=== PATIENT | female | born 1980 | race American Indian/Alaskan Native ===

== ENCOUNTER 2019-04-12 19:54 | Emergency (ER) | payer OTHER ==
--- NOTE | 2019-04-12 20:42 | Emergency Department Report ---
Blank Doc - Documentation Documentation: 6 WEEKS WITH ABDOMINAL PAIN AND BLEEDING. PLAN LABS AND US
[2019-04-12 21:31] LABS: Bilirubin,Urine NEG (Negative); Blood,Urine NEG (Negative); Color,Urine Colorless (Yellow); Protein,Urine <15 mg/dL mg/dL (Negative); RBC,Urine < 1.0 /HPF (0.0-6.0); Urobilinogen,Urine < 2.0 mg/dL (<2.0); WBC,Urine < 1.0 /HPF (0.0-6.0)
[2019-04-12 21:33] LABS: Basophils % (Auto) 0.7 % (0.0-1.8); Eosinophils # (Auto) 0.2 K/mm3 (0.0-0.4); Eosinophils % (Auto) 2.8 % (0.0-4.3); Hematocrit 33.3 % (30.3-42.9); Lymphocytes # (Auto) 2.5 K/mm3 (1.2-5.4); Lymphocytes % (Auto) 42.7 % (13.4-35.0); Mean Corpuscular HGB Conc 33 % (30-34); Monocytes # (Auto) 0.6 K/mm3 (0.0-0.8); Monocytes % (Auto) 10.1 % (0.0-7.3); Platelet Count 265 K/mm3 (140-440); Red Cell Distribution Width 19.2 % (13.2-15.2)
[2019-04-12 21:40] LABS: Mean Corpuscular Volume 65 fl (79-97)
[2019-04-12 21:43] LABS: INR 1.02 (0.87-1.13)
[2019-04-12 21:57] LABS: BUN/Creatinine Ratio 11; Blood Urea Nitrogen 8 mg/dL (7-17); Calcium 9.6 mg/dL (8.4-10.2); Hemolysis Index 2
[2019-04-13] MEDS ORDERED: TYLENOL PO ONE (00:04)
--- NOTE | 2019-04-13 00:09 | Emergency Department Report ---
ED HPI - General Chief complaint: Abdominal Pain Stated complaint: ABD CRAMPS/VAGINAL BLEEDING Time Seen by Provider: 04/12/19 20:41 Source: patient Mode of arrival: Ambulatory Limitations: No Limitations - History of Present Illness Initial comments: 38-year-old female presents to ED with lower abdominal and back cramping since earlier this evening. Patient states she is currently 6 weeks . Reports slight spotting associated with the pain. Patient is , with 1 spontaneous miscarriage. OB: [facility] Complaint: abdominal pain, vaginal bleeding (spotting) -: This evening Location: pelvis Radiation: back Severity: moderate Quality: cramping Consistency: intermittent Improves with: none Worsens with: none Associated symptoms: vaginal bleeding Vaginal bleeding: light :: Yes Number of weeks : 6 Pre- care: none (none so far, has appt w/ [facility] scheduled) - Related Data : 5 Para: 3 Allergies Allergy/AdvReac Type Severity Reaction Status Date / Time No Known Allergies Allergy Unverified 04/12/19 20:40 ED Review of Systems ROS: Stated complaint: ABD CRAMPS/VAGINAL BLEEDING Other details as noted in HPI Comment: All other systems reviewed and negative Gastrointestinal: abdominal pain Genitourinary: other (reports vaginal spotting) ED Past Medical Hx - Past Medical History Previous Medical History?: No - Surgical History Past Surgical History?: No - Social History Smoking Status: Never Smoker ED Physical Exam - General Limitations: No Limitations General appearance: alert, in no apparent distress - Head Head exam: Present: atraumatic, normocephalic - Eye Eye exam: Present: normal appearance - ENT ENT exam: Present: mucous membranes moist - Neck Neck exam: Present: normal inspection - Respiratory Respiratory exam: Present: normal lung sounds bilaterally. Absent: respiratory distress - Cardiovascular Cardiovascular Exam: Present: regular rate, normal rhythm - GI/Abdominal GI/Abdominal exam: Present: soft, tenderness (mild suprapubic). Absent: distended - Extremities Exam Extremities exam: Present: normal inspection - Neurological Exam Neurological exam: Present: alert, oriented X3 - Psychiatric Psychiatric exam: Present: normal affect, normal mood - Skin Skin exam: Present: warm, dry, intact, normal color. Absent: rash ED Course Vital Signs 04/12/19 04/12/19 04/13/19 19:58 20:42 01:35 Temperature 98.0 F 98.0 F Pulse Rate 62 62 Respiratory 18 18 12 Rate Blood Pressure 148/78 148/78 Blood Pressure [Left] O2 Sat by Pulse 100 100 Oximetry 04/13/19 02:59 Temperature 98.7 F Pulse Rate 66 Respiratory 12 Rate Blood Pressure Blood Pressure 118/74 [Left] O2 Sat by Pulse 100 Oximetry - Reevaluation(s) Reevaluation #1: 04/13/19 02:39 Spoke w/ [facility] multiple times. Unable to find pt's study. No report in [employer]. No report in PACS. [facility] has report in his [employer] system. I viewed report and it states single live IUP, HR 98. ED Medical Decision Making - Lab Data Result diagrams: 04/12/19 20:54 04/12/19 20:54 - Radiology Data Radiology results: report reviewed, image reviewed - Medical Decision Making - abdominal cramping, light spotting - US shows IUP at 6 wks, HR 98 - threatened miscarriage, pt advisd to f/u with OB - return precautions given - vitals stable - Differential Diagnosis ectpoic, IUP, miscarriage Critical care attestation.: If time is entered above; I have spent that time in minutes in the direct care of this critically ill patient, excluding procedure time. ED Disposition Clinical Impression: Threatened miscarriage in early , 6 weeks gestation of Disposition: DC-01 TO HOME OR SELFCARE Is pt being admited?: No Condition: Stable Instructions: Threatened Miscarriage (ED), Abdominal Pain (ED) Referrals: PRIMARY CARE, [Referring] - 3-5 Days Time of Disposition: 02:41
--- NOTE | 2019-04-13 02:42 | Ultrasound Report ---
PROCEDURE: US OB <= 14 WEEKS FETUS TECHNIQUE: Real-time transabdominal and transvaginal sonography of the uterus, placenta, amniotic fl uid, adnexa, and fetus was performed with image documentation. Measurements were obtained to determin e age/size. M-mode Doppler was used to document heartbeat. ADDITIONAL GESTATION: None. HISTORY: Vaginal bleeding COMPARISONS: None . FINDINGS: CRL: 3.7 mm, which corresponds to a gestational age of: 6 weeks, 0 days. Yolk Sac: Appropriate for gestational age. . Embryonic Cardiac Activity: 98 bpm . Gestational Sac: Size and shape are appropriate for gestational age Placenta: Normal Amniotic fluid: Appropriate for gestational age. Cervix: Normal. Right Ovary: Normal . Left Ovary: Normal . Estimated delivery date: 12/06/2019 . Uterus and adnexa: Normal. IMPRESSION: Single live intrauterine gestation at approximately 6 weeks 0 days . EDC by US 0 . This document is electronically signed by Pippa Fregoso DO., April 13 2019 12:10:00 AM ET
--- NOTE | 2019-04-13 02:42 | Ultrasound Report ---
PROCEDURE: US OB TRANSVAGINAL TECHNIQUE: Real-time transabdominal and transvaginal sonography of the uterus, placenta, amniotic fl uid, adnexa, and fetus was performed with image documentation. Measurements were obtained to determin e age/size. M-mode Doppler was used to document heartbeat. ADDITIONAL GESTATION: None. HISTORY: Vaginal bleeding COMPARISONS: None . FINDINGS: CRL: 3.7 mm, which corresponds to a gestational age of: 6 weeks, 0 days. Yolk Sac: Appropriate for gestational age. . Embryonic Cardiac Activity: 98 bpm . Gestational Sac: Size and shape are appropriate for gestational age Placenta: Normal Amniotic fluid: Appropriate for gestational age. Cervix: Normal. Right Ovary: Normal . Left Ovary: Normal . Estimated delivery date: 12/06/2019 . Uterus and adnexa: Normal. IMPRESSION: Single live intrauterine gestation at approximately 6 weeks 0 days . EDC by US 0 . This document is electronically signed by Pippa Fregoso DO., April 13 2019 12:10:34 AM ET
[2019-04-13 03:03] VITALS: BP 118/74
== END 2019-04-13 03:05 | disposition home or self-care (01) ==
LOC: ED 19:54
DX: O20.0 Threatened abortion (principal); Z3A.01 Less than 8 weeks gestation of pregnancy
CPT/HCPCS: 36415; 76801; 76817; 80048; 81001; 84702; 85025; 85610; 86900; 86901; 99284

== ENCOUNTER 2019-11-11 14:39 | Outpatient (CLI) | payer OTHER ==
[2019-11-11 15:45] LABS: Bilirubin,Urine NEG (Negative); Blood,Urine NEG (Negative); Color,Urine Yellow (Yellow); Mucus,Urine FEW /HPF; Protein,Urine <15 mg/dL mg/dL (Negative); Urobilinogen,Urine < 2.0 mg/dL (<2.0); WBC,Urine < 1.0 /HPF (0.0-6.0)
[2019-11-11 17:08] VITALS: BP 116/62
--- NOTE | 2019-11-11 21:19 | Ultrasound Report ---
Limited obstetrical ultrasound INDICATION: 36 week , labor Very limited evaluation was performed. Intrauterine is seen. heart rate of 135 bpm wa s documented. Technologist reported cephalic position. WESLEY is just within normal limits at 8.5 cm. Signer Name: Carmelo Elizabeth MD Signed: 11/11/2019 9:14 PM Workstation Name: [id number]
--- NOTE | 2019-11-11 21:50 | Ultrasound Report ---
Biophysical profile. 11/11/2019. HISTORY: Previous movement. FINDINGS: Biophysical profile is normal at 8/8. Signer Name: Joe Mayorga MD Signed: 11/11/2019 9:46 PM Workstation Name: [id number]
== END 2019-11-11 18:19 | disposition home or self-care (01) ==
LOC: TRG 14:39
PROVIDERS: ATTEND Obstetrics & Gynecology
DX: O47.1 False labor at or after 37 completed weeks of gestation (principal); Z3A.36 36 weeks gestation of pregnancy
CPT/HCPCS: 59025; 76815; 76819; 81001

== ENCOUNTER 2019-12-02 14:17 | Inpatient (IN) | payer OTHER ==
[2019-12-02] MEDS ORDERED: ePHEDrine SULFATE 50 MG/1 ML INJ IV PRN (15:44)
[2019-12-02] MEDS ORDERED: LIDOCAINE (2%) 20 MG/1 ML VIAL 20 ML MDV INFILTRATI ONE (15:44)
[2019-12-02] MEDS ORDERED: TERBUTALINE 1 MG/1 ML INJ IVP PRN (15:44)
[2019-12-02] MEDS ORDERED: BUTORPHANOL 2 MG/1 ML INJ IV PRN (15:44)
[2019-12-02] MEDS ORDERED: fentaNYL 100 MCG/2 ML INJ IV PRN (15:44)
[2019-12-02] MEDS ORDERED: TERBUTALINE 1 MG/1 ML INJ SUB-Q PRN (15:44)
[2019-12-02] MEDS ORDERED: MINERAL OIL 30 ML ORAL LIQD PO PRN (15:44)
[2019-12-02] MEDS ORDERED: OXYTOCIN DRIP 30 UNITS/500 ML BAG IV SCH (16:00)
[2019-12-02] MEDS ORDERED: OXYTOCIN 20 UNIT/1000ML DRIP 20 UNITS/1,000 ML BAG IV SCH (16:00)
[2019-12-02] MEDS ORDERED: miSOPROStol 25 MCG TAB PO SCH (16:00)
[2019-12-02] MEDS ORDERED: LACTATED RINGERS 1,000 ML IV SCH (16:00)
--- NOTE | 2019-12-02 16:08 | History and Physical Report ---
History of Present Illness Date of examination: 12/02/19 Date of admission: 12/02/19 14:17 Chief complaint: IOL secondary to NRFHTs at [facility] office History of present illness: 39 yo, @ 39wks gestation, initiated care with [facility] at 8 wks gestation. Her has been complicated by AMA, Beta Thalassemia minor, Vit D deficiency, increased carrier risk for SMA and polyhydramnios (resolved by August). Her care has been co-managed by [facility] specialist. She reports to [facility] from [facility] office today for IOL secondary to non-reactive NST, per [facility] recommendations. She reports some FM, but not as much as usual in the past week. Denies any VB or LOF. Labs: B+, antibody negative; Rubella immune; VDLR non-reactive; urine culture negative; HBsAg negative; HIV negative; platelets 310K; GC/Chlamydia/Trich negative; Vit D 22.6; HSVII negative; Hgb 10.4, Hct 32.9%; 1 hr gtt - 114; GBS negative. Past History Past Medical History: no pertinent history Past Surgical History: no surgical history [employer] History: other (HRHPV with negative PAP) Family/Genetic History: hypertension (father) Social history: , lives with family, full code. denies: smoking, alcohol abuse, prescription drug abuse, IV drug use - Obstetrical History Expected Date of Delivery: 12/09/19 Actual Gestation: 39 Week(s) 0 Day(s) : 5 Para: 3 Hx # Term Pregnancies: 3 Number of Pregnancies: 0 Spontaneous Abortions: 1 Induced : 0 Number of Living Children: 3 #1 Gender: Female year: Birthweight: 2.948 kg Method of Delivery: Vaginal Gestational age at delivery: 40 Complications: none #2 Gender: Female year: 2,[birth year] Birthweight: 3.033 kg Method of Delivery: Vaginal Gestational age at delivery: 41 Complications: none #3 Gender: Male year: 2,010 Birthweight: 2.977 kg Method of Delivery: Vaginal Gestational age at delivery: 40 Complications: none Medications and Allergies Allergies Allergy/AdvReac Type Severity Reaction Status Date / Time No Known Allergies Allergy Verified 11/11/19 14:44 Active Meds: Active Medications Butorphanol Tartrate (Stadol) 2 mg IV Q2H PRN PRN Reason: Pain , Severe (7-10) Ephedrine Sulfate (Ephedrine Sulfate) 10 mg IV Q2M PRN PRN Reason: Hypotension Fentanyl (Sublimaze) 100 mcg IV Q2H PRN PRN Reason: Labor Pain Oxytocin/Sodium Chloride (Pitocin/Ns 20 Unit/1000ml Drip) 20 units in 1,000 mls @ 125 mls/hr IV DIRECT CAT Oxytocin/Sodium Chloride (Pitocin/Ns 30 Unit/500ml) 30 units in 500 mls @ 1 mls/hr IV TITR CAT; Protocol Lactated Ringer's (Lactated Ringers) 1,000 mls @ 125 mls/hr IV DIRECT CAT Mineral Oil (Mineral Oil) 30 ml PO QHS PRN PRN Reason: Constipation Misoprostol (Cytotec) 50 mcg PO Q4H CAT Terbutaline Sulfate (Brethine) 0.25 mg SUB-Q ONCE PRN PRN Reason: Hyperstimulation/Hypertonicity Terbutaline Sulfate (Brethine) 0.25 mg IVP ONCE PRN PRN Reason: Hyperstimulation/Hypertonicity Review of Systems All systems: negative - Vital Signs Vital signs: Vital Signs Temp Pulse Resp BP Pulse Ox 98.1 F 76 16 125/80 99 12/02/19 14:45 12/02/19 14:45 12/02/19 14:45 12/02/19 14:45 12/02/19 14:45 Temp Pulse Resp BP Pulse Ox 98.1 F 82 16 125/80 98 12/02/19 14:45 12/02/19 15:32 12/02/19 14:45 12/02/19 14:45 12/02/19 15:32 - Physical Exam Breasts: Positive: normal Cardiovascular: Regular rate Lungs: Positive: Normal air movement Abdomen: Positive: other (gravid) Genitourinary (Female): Positive: normal external genitalia Vagina: Positive: normal moisture Uterus: Positive: enlarged (S=D) Extremities: Positive: normal Deep Tendon Reflex Grade: Normal +2 - Obstetrical FHR: category 2 (minimal varibility) Uterine Contraction Monitor Mode: External Cervical Dilatation: 1 Cervical Effacement Percentage: 50 station: -3 Uterine Contraction Pattern: Absent Uterine Tone Measurement Phase: Resting Results All other labs normal. Assessment and Plan - Patient Problems (1) Encounter for induction of labor Current Visit: Yes Status: Acute Plan to address problem: Admit to [facility] L & D Induction of labor Initiate cyctotec 50mcg po q 4 hrs Anticipate (2) Advanced maternal age (AMA) in Current Visit: Yes Status: Acute (3) Beta thalassemia minor Current Visit: Yes Status: Acute
[2019-12-02 16:55] LABS: Hematocrit 36.4 % (30.3-42.9); Hemoglobin 11.9 gm/dl (10.1-14.3); Mean Corpuscular HGB Conc 33 % (30-34); Mean Corpuscular Volume 74 fl (79-97); Platelet Count 209 K/mm3 (140-440); Red Blood Count 4.94 M/mm3 (3.65-5.03); Red Cell Distribution Width 14.9 % (13.2-15.2)
--- NOTE | 2019-12-02 18:03 | Progress Note ---
Assessment and Plan - Patient Problems (1) Encounter for induction of labor Current Visit: Yes Status: Acute Plan to address problem: Admit to [facility] L & D Induction of labor Discontinue cytotec Alvarado bulb placed (80cc uterine; 80 cc vaginal) without difficulty, pt tolerated well Anticipate (2) Advanced maternal age (AMA) in Current Visit: Yes Status: Acute (3) Beta thalassemia minor Current Visit: Yes Status: Acute Subjective - Subjective Date of service: 12/02/19 Principal diagnosis: IOL Interval history: 39 yo, @ 39wks gestation, initiated care with [facility] at 8 wks gestation. Her has been complicated by AMA, Beta Thalassemia minor, Vit D deficiency, increased carrier risk for SMA and polyhydramnios (resolved by August). Her care has been co-managed by [facility] specialist. She reports to [facility] from [facility] office today for IOL secondary to non-reactive NST, per [facility] recommendations. She reports some FM, but not as much as usual in the past lang collins Denies any VB or LOF. Labs: B+, antibody negative; Rubella immune; VDLR non-reactive; urine culture negative; HBsAg negative; HIV negative; platelets 310K; GC/Chlamydia/Trich negative; Vit D 22.6; HSVII negative; Hgb 10.4, Hct 32.9%; 1 hr gtt - 114; GBS negative. Patient reports: movement normal, other (Discussed minimal variablity of FHTs with pt, and recommended cervical exam. If cervix is open at least 1 cm, can attempt to place a alvarado bulb for cervical ripening instead of cyctotec. Pt verbalized understanding and agrees with POC.), no loss of fluid, no vaginal bleeding, no contractions Objective - Vital Signs Vital Signs: Vital Signs - 12hr 12/02/19 12/02/19 12/02/19 14:45 14:57 15:02 Temperature 98.1 F Pulse Rate 76 78 81 Respiratory 16 Rate Blood Pressure Blood Pressure 125/80 [Right] O2 Sat by Pulse 99 98 98 Oximetry 12/02/19 12/02/19 12/02/19 15:07 15:12 15:17 Temperature Pulse Rate 86 89 90 Respiratory Rate Blood Pressure Blood Pressure [Right] O2 Sat by Pulse 98 98 98 Oximetry 12/02/19 12/02/19 12/02/19 15:22 15:23 15:27 Temperature Pulse Rate 83 86 Respiratory Rate Blood Pressure Blood Pressure [Right] O2 Sat by Pulse 98 86 98 Oximetry 12/02/19 12/02/19 12/02/19 15:32 16:40 16:45 Temperature Pulse Rate 82 90 99 H Respiratory Rate Blood Pressure Blood Pressure [Right] O2 Sat by Pulse 98 97 98 Oximetry 12/02/19 12/02/19 12/02/19 16:50 16:55 17:00 Temperature Pulse Rate 94 H 100 H 99 H Respiratory Rate Blood Pressure Blood Pressure [Right] O2 Sat by Pulse 98 99 98 Oximetry 12/02/19 12/02/19 12/02/19 17:05 17:10 17:15 Temperature Pulse Rate 94 H 108 H 104 H Respiratory Rate Blood Pressure 130/82 Blood Pressure [Right] O2 Sat by Pulse 98 98 98 Oximetry 12/02/19 12/02/19 12/02/19 17:20 17:25 17:30 Temperature Pulse Rate 108 H 95 H 101 H Respiratory Rate Blood Pressure Blood Pressure [Right] O2 Sat by Pulse 98 98 98 Oximetry 12/02/19 12/02/19 12/02/19 17:35 17:40 17:45 Temperature Pulse Rate 100 H 90 96 H Respiratory Rate Blood Pressure Blood Pressure [Right] O2 Sat by Pulse 98 98 99 Oximetry 12/02/19 12/02/19 17:50 17:55 Temperature Pulse Rate 87 83 Respiratory Rate Blood Pressure Blood Pressure [Right] O2 Sat by Pulse 97 98 Oximetry - Exam Breasts: deferred Cardiovascular: Regular rate Lungs: Normal air movement Uterus: Present: other (S=D) FHR: category 2 (minimal varibility) Uterine Contraction Monitor Mode: External Cervical Dilatation: 1 Cervical Effacement Percentage: 50 station: -3 Uterine Contraction Pattern: Absent Uterine Tone Measurement Phase: Resting Extremities: normal - Labs Labs: Abnormal Labs 12/02/19 16:29 MCV 74 L MCH 24 L Laboratory Results - last 24 hr 12/02/19 12/02/19 16:29 16:29 WBC 8.7 RBC 4.94 Hgb 11.9 Hct 36.4 MCV 74 L MCH 24 L MCHC 33 RDW 14.9 Plt Count 209 Blood Type B POSITIVE Antibody Screen Negative
--- NOTE | 2019-12-02 20:47 | Ultrasound Report ---
Obstetrical ultrasound third trimester limited INDICATION: Pelvic and abdominal pain FINDINGS: The WESLEY is decreased at 6 cm. The fetus in the cephalic position. heart rate measures 141 bpm. IMPRESSION: Decreased WESLEY of 6 cm, as above. ULTRASOUND BIOPHYSICAL PROFILE INDICATION / CLINICAL INFORMATION: wellbeing. COMPARISON: None available. FINDINGS: BREATHING MOVEMENT = 2 GROSS BODY MOVEMENT = 2 TONE = 2 QUALITATIVE AMNIOTIC FLUID VOLUME = 2 TOTAL BIOPHYSICAL SCORE = 05/29 AMNIOTIC FLUID INDEX (cm) = PRESENTATION: Cephalic. HEART RATE (beats per minute): IMPRESSION: 1. biophysical profile = 05/29 Signer Name: Andrez Nuno MD Signed: 12/02/2019 8:42 PM Workstation Name: [email or web address]
--- NOTE | 2019-12-03 10:06 | Progress Note ---
Assessment and Plan A: IUP @ 39 6/7 Weeks Category II Tracing Active Labor GBS Negative P: AROM Internals X 2 Start Pitocin Augmentation Subjective - Subjective Date of service: 12/03/19 Principal diagnosis: IOL Patient reports: movement normal, no loss of fluid, no vaginal bleeding, no contractions Objective - Vital Signs Vital Signs: Vital Signs - 12hr 12/02/19 12/02/19 12/02/19 22:03 22:08 22:11 Temperature Pulse Rate 91 H 111 H 84 Blood Pressure 125/75 O2 Sat by Pulse 97 97 Oximetry 12/02/19 12/02/19 12/02/19 22:13 22:18 22:23 Temperature Pulse Rate 98 H 104 H 103 H Blood Pressure O2 Sat by Pulse 98 97 97 Oximetry 12/02/19 12/02/19 12/02/19 22:28 22:33 22:48 Temperature Pulse Rate 98 H 97 H 88 Blood Pressure O2 Sat by Pulse 97 99 98 Oximetry 12/02/19 12/02/19 12/02/19 22:53 22:58 23:03 Temperature Pulse Rate 99 H 104 H 108 H Blood Pressure O2 Sat by Pulse 98 98 98 Oximetry 12/02/19 12/02/19 12/02/19 23:08 23:10 23:13 Temperature Pulse Rate 94 H 87 99 H Blood Pressure 128/76 O2 Sat by Pulse 98 94 97 Oximetry 12/02/19 12/02/19 12/02/19 23:18 23:23 23:28 Temperature Pulse Rate 98 H 99 H 93 H Blood Pressure O2 Sat by Pulse 97 96 98 Oximetry 12/02/19 12/02/19 12/02/19 23:33 23:38 23:43 Temperature Pulse Rate 106 H 94 H 95 H Blood Pressure O2 Sat by Pulse 97 98 97 Oximetry 12/02/19 12/02/19 12/02/19 23:48 23:53 23:58 Temperature Pulse Rate 105 H 96 H 99 H Blood Pressure O2 Sat by Pulse 97 98 98 Oximetry 12/03/19 12/03/19 12/03/19 00:03 00:08 00:10 Temperature Pulse Rate 97 H 99 H 87 Blood Pressure 134/79 O2 Sat by Pulse 98 97 94 Oximetry 12/03/19 12/03/19 12/03/19 00:13 00:18 00:23 Temperature Pulse Rate 96 H 98 H 93 H Blood Pressure O2 Sat by Pulse 97 96 97 Oximetry 12/03/19 12/03/19 12/03/19 00:28 00:33 00:38 Temperature Pulse Rate 102 H 92 H 88 Blood Pressure O2 Sat by Pulse 98 97 98 Oximetry 12/03/19 12/03/19 12/03/19 00:43 00:48 00:53 Temperature Pulse Rate 94 H 99 H 97 H Blood Pressure O2 Sat by Pulse 97 97 98 Oximetry 12/03/19 12/03/19 12/03/19 00:58 01:03 01:08 Temperature Pulse Rate 107 H 96 H 96 H Blood Pressure O2 Sat by Pulse 97 97 97 Oximetry 12/03/19 12/03/19 12/03/19 01:11 01:13 01:18 Temperature Pulse Rate 92 H 98 H 95 H Blood Pressure 137/82 O2 Sat by Pulse 98 97 Oximetry 12/03/19 12/03/19 12/03/19 01:23 01:28 01:33 Temperature Pulse Rate 101 H 94 H 94 H Blood Pressure O2 Sat by Pulse 97 98 98 Oximetry 12/03/19 12/03/19 12/03/19 01:38 01:43 01:52 Temperature Pulse Rate 93 H 104 H 94 H Blood Pressure O2 Sat by Pulse 98 99 100 Oximetry 12/03/19 12/03/19 12/03/19 01:57 02:02 02:07 Temperature Pulse Rate 96 H 88 83 Blood Pressure O2 Sat by Pulse 99 99 98 Oximetry 12/03/19 12/03/19 12/03/19 02:12 02:17 02:22 Temperature Pulse Rate 89 88 97 H Blood Pressure 114/72 O2 Sat by Pulse 98 98 98 Oximetry 12/03/19 12/03/19 12/03/19 02:27 02:32 02:37 Temperature Pulse Rate 93 H 85 90 Blood Pressure O2 Sat by Pulse 97 98 97 Oximetry 12/03/19 12/03/19 12/03/19 02:42 02:47 02:52 Temperature Pulse Rate 86 88 100 H Blood Pressure O2 Sat by Pulse 97 97 97 Oximetry 12/03/19 12/03/19 12/03/19 02:57 03:02 03:07 Temperature Pulse Rate 78 85 103 H Blood Pressure O2 Sat by Pulse 97 99 98 Oximetry 0212/03/19 12/03/19 03:12 03:17 03:22 Temperature Pulse Rate 98 H 95 H 101 H Blood Pressure O2 Sat by Pulse 98 98 98 Oximetry 12/03/19 12/03/19 12/03/19 03:27 03:32 03:34 Temperature Pulse Rate 109 H 99 H 105 H Blood Pressure O2 Sat by Pulse 99 98 86 Oximetry 12/03/19 12/03/19 12/03/19 03:37 03:42 03:47 Temperature Pulse Rate 89 89 102 H Blood Pressure O2 Sat by Pulse 100 100 99 Oximetry 12/03/19 12/03/19 12/03/19 03:52 03:57 04:02 Temperature Pulse Rate 94 H 105 H 80 Blood Pressure O2 Sat by Pulse 98 98 98 Oximetry 12/03/19 12/03/19 12/03/19 04:07 04:10 04:12 Temperature Pulse Rate 85 75 88 Blood Pressure 137/82 O2 Sat by Pulse 98 97 Oximetry 12/03/19 12/03/19 12/03/19 04:17 04:22 04:27 Temperature Pulse Rate 86 83 84 Blood Pressure O2 Sat by Pulse 98 98 98 Oximetry 12/03/19 12/03/19 12/03/19 04:32 04:37 04:40 Temperature Pulse Rate 75 85 94 H Blood Pressure O2 Sat by Pulse 98 98 0 L Oximetry 12/03/19 12/03/19 12/03/19 04:56 05:01 05:06 Temperature Pulse Rate 89 70 94 H Blood Pressure O2 Sat by Pulse 98 98 98 Oximetry 12/03/19 12/03/19 12/03/19 05:11 05:16 05:21 Temperature Pulse Rate 91 H 77 88 Blood Pressure 130/83 O2 Sat by Pulse 96 98 98 Oximetry 12/03/19 12/03/19 12/03/19 05:26 05:31 05:36 Temperature Pulse Rate 73 75 80 Blood Pressure O2 Sat by Pulse 96 96 96 Oximetry 12/03/19 12/03/19 12/03/19 05:41 05:46 05:51 Temperature Pulse Rate 99 H 97 H 102 H Blood Pressure O2 Sat by Pulse 96 96 96 Oximetry 12/03/19 12/03/19 12/03/19 05:56 06:01 06:06 Temperature Pulse Rate 99 H 79 101 H Blood Pressure O2 Sat by Pulse 96 96 96 Oximetry 12/03/19 12/03/19 12/03/19 06:10 06:11 06:16 Temperature Pulse Rate 87 107 H 84 Blood Pressure 125/77 O2 Sat by Pulse 98 97 Oximetry 12/03/19 12/03/19 12/03/19 06:21 06:26 06:31 Temperature Pulse Rate 88 92 H 94 H Blood Pressure O2 Sat by Pulse 96 95 95 Oximetry 12/03/19 12/03/19 12/03/19 06:36 06:41 06:46 Temperature Pulse Rate 93 H 86 96 H Blood Pressure O2 Sat by Pulse 98 98 98 Oximetry 12/03/19 12/03/19 12/03/19 06:51 06:56 07:01 Temperature Pulse Rate 93 H 87 100 H Blood Pressure O2 Sat by Pulse 98 98 97 Oximetry 12/03/19 12/03/19 12/03/19 07:04 07:06 09:34 Temperature Pulse Rate 84 87 85 Blood Pressure 110/71 O2 Sat by Pulse 94 93 Oximetry 12/03/19 09:35 Temperature 97.9 F Pulse Rate 18 L Blood Pressure O2 Sat by Pulse Oximetry - Exam Breasts: normal Cardiovascular: Regular rate Lungs: Clear to auscultation, Normal air movement Abdomen: Present: normal appearance, soft Uterus: Present: normal, firm, fundal height above umbilicus FHR: category 1 Uterine Contraction Monitor Mode: External Cervical Dilatation: 5 (AROM @ 0951 of a small amount clear fluid) Cervical Effacement Percentage: 70 station: -2 Uterine Contraction Pattern: Irregular Uterine Tone Measurement Phase: Resting Uterine Contraction Intensity: Mild Extremities: normal - Labs Labs: Abnormal Labs 12/02/19 16:29 MCV 74 L MCH 24 L Laboratory Results - last 24 hr 12/02/19 12/02/19 16:29 16:29 WBC 8.7 RBC 4.94 Hgb 11.9 Hct 36.4 MCV 74 L MCH 24 L MCHC 33 RDW 14.9 Plt Count 209 Blood Type B POSITIVE Antibody Screen Negative
[2019-12-03] MEDS ORDERED: METOCLOPRAMIDE 10 MG/2 ML INJ ONE (11:14)
[2019-12-03] MEDS ORDERED: BICITRA ORAL LIQD 30ML ONE (11:14)
[2019-12-03] MEDS ORDERED: FAMOTIDINE 20 MG/2 ML INJ IV ONE (11:15)
[2019-12-03] MEDS ORDERED: propofoL 200 MG/20 ML VIAL IV ONE ×2 (11:19→11:32)
[2019-12-03] MEDS ORDERED: SODIUM CHLORIDE 0.9% IRR 1,500 ML BOTTLE IR ONE (11:23)
[2019-12-03] MEDS ORDERED: WATER FOR IRRIG STERILE 1,500 ML BOTTLE IR ONE (11:23)
[2019-12-03] MEDS ORDERED: KETAMINE/STERILE WATER 50 MG/ML SYRINGE ONE (11:24)
[2019-12-03] MEDS ORDERED: MIDAZOLAM 2 MG/2 ML INJ ONE (11:25)
[2019-12-03] MEDS ORDERED: ceFAZolin/STERILE WATER 2 GM/20 ML SYRINGE IV ONE (11:30)
[2019-12-03] MEDS ORDERED: dexAMETHasone 20 MG/5 ML VIAL ONE (11:52)
[2019-12-03] MEDS ORDERED: DEXMEDETOMIDINE 200 MCG/2 ML VIAL IV ONE (11:52)
[2019-12-03] MEDS ORDERED: ceFAZolin 1 GM VIAL ONE (11:52)
[2019-12-03] MEDS ORDERED: OXYTOCIN 10 UNIT/1 ML INJ ONE (11:52)
[2019-12-03] MEDS ORDERED: SUCCINYLCHOLINE CHLORIDE 200 MG/10 ML INJ MDV ONE (11:52)
[2019-12-03] MEDS ORDERED: KETOROLAC 30 MG/1 ML INJ ONE (11:52)
[2019-12-03] MEDS ORDERED: ONDANSETRON 4 MG/2 ML INJ ONE (11:52)
--- NOTE | 2019-12-03 12:17 | Procedure Note ---
OB Delivery Note - Delivery Date of Delivery: 12/03/19 Surgeon: SHELIA ESQUIVEL Estimated blood loss: 300cc - Section Preop diagnosis: nonreassuring FHR tracing (terminal bradycardia to 30bpm) Postop diagnosis: same section procedure: primary low transverse Disposition: PACU Complications: none Narrative: Preoperative diagnosis: IUP at term, terminal bradycardia Postoperative diagnosis: same Procedure: Primary low transverse section via pfannenstiel incision Surgeon: Dr Shelia Esquivel Assist: scrub Anesthesia: GET Complications: none EBL 300ml IV Fluids: 1500ml Urine output: adequate and clear. I was called to the OR for terminal bradycardia at 11:13. STAT c/section was called and patient taken to the OR immediately. Patient placed in the dorsal supine position with a leftward tilt. Splash betadine was used for prep. Patient was prepped and draped in a sterile fashion. A time out was verified. Patient then underwent excellent General anesthesia. A pfannenstiel skin incision was made and taken down to the underlying fascia. The fascial incision was extended laterally sharply with a scalpel . The abdomen was entered in the midline bluntly and a bladder blade inserted. The uterine incision was made sharply and extended laterally digitally. The vertex and anterior shoulder delivered manually, the remainder of delivery atraumatric with spontaneous cry. No nuchal cord. Cord was clamped and cut and baby handed to waiting NICU staff. An intact placenta with three vessel cord delivered manually. The uterus was exteriorized and cleared of all clots and debris.The uterine incision was closed in two layers of 0-vicryl with excellent hemostasis. Firm Fundus. The uterus was placed back into the abdomen and a second look at the uterine incision assured hemostasis. The abdomen was irrigated with warm normal saline. EBL 300ml. The peritoneum closed with 2-0 vicryl and the rectus muscles approximated with 2-0 vicryl. The fascia closed with 0-vicryl in the usual fashion. The subcuticular structures closed with interrupted 2-0 vicryl in the usual fashion. The skin closed with hadley. A pressure dressing applied. An intra-operative X-Ray was done to verify that there were no retained instruments or sponges. Patient ex tubated and taken to the recovery area in stable condition. No complications. EBL 300ml Sharif HORNER - Infant A at 1 minute: 8 at 5 minutes: 9 Gender: Male (weight)
[2019-12-03] MEDS ORDERED: NALOXONE 0.4 MG/1 ML INJ IV PRN ×2 (12:19→12:46)
[2019-12-03] MEDS ORDERED: PROMETHAZINE 25 MG RECT SUPP PR PRN (12:19)
[2019-12-03] MEDS ORDERED: ONDANSETRON 4 MG/2 ML INJ IV PRN ×2 (12:19→12:46)
[2019-12-03] MEDS ORDERED: PROMETHAZINE 25 MG TAB PO PRN (12:19)
--- NOTE | 2019-12-03 12:19 | Anesthesia Day of Surgery ---
Anesthesia Day of Surgery - Day of Surgery Patient Examined: Yes Patient H&P Reviewed: Yes Patient is NPO: Yes
--- NOTE | 2019-12-03 12:19 | Anesthesia Consultation ---
Anesthesia Consult and Med Hx Date of service: 12/03/19 - Airway Anesthetic Teeth Evaluation: Bridges ROM Head & Neck: Adequate Mental/Hyoid Distance: Adequate Mallampati Class: Class II Intubation Access Assessment: Probably Good - Pulmonary Exam CTA: Yes - Cardiac Exam Cardiac Exam: RRR - Pre-Operative Health Status ASA Pre-Surgery Classification: ASA2, Emergency Proposed Anesthetic Plan: General - Pulmonary Hx Asthma: No COPD: No Hx Pneumonia: No - Cardiovascular System Hx Hypertension: No - Central Nervous System Hx Seizures: No Hx Psychiatric Problems: No - Endocrine Hx Renal Disease: No Hx End Stage Renal Disease: No Hx Hypothyroidism: No Hx Hyperthyroidism: No - Hematic Hx Anemia: No Hx Sickle Cell Disease: No - Other Systems Hx Alcohol Use: No - Additional Comments Anesthesia Medical History Comments: beta thalassemia minor
[2019-12-03] MEDS ORDERED: NalbUPHINE 10 MG/1 ML INJ IV PRN (12:20)
[2019-12-03] MEDS ORDERED: LANOLIN/ZINC/DIMETHICONE (LANSINOH) 7 GM TP PRN (12:46)
[2019-12-03] MEDS ORDERED: WITCH HAZEL/ GLYCERIN PAD TP PRN (12:46)
[2019-12-03] MEDS ORDERED: MORPHINE 2 MG/1 ML INJ IV PRN (12:46)
[2019-12-03] MEDS ORDERED: MORPHINE 4 MG/1 ML INJ IV PRN (12:46)
[2019-12-03] MEDS ORDERED: HYDROcodone/ACETAMINOPHEN 5-325 MG TAB PO PRN (12:46)
[2019-12-03] MEDS ORDERED: IBUPROFEN 800 MG TAB PO PRN (12:46)
[2019-12-03] MEDS ORDERED: OXYTOCIN 20 UNIT/1000ML DRIP 20 UNITS/1,000 ML BAG IV SCH (13:00)
[2019-12-03] MEDS ORDERED: ACETAMINOPHEN 500 MG TAB PO SCH (13:00)
--- NOTE | 2019-12-03 14:06 | XRay Report ---
ABDOMEN 2 VIEWS INDICATION: INSTRUMENT COUNT, . COMPARISON: No relevant prior imaging study available. FINDINGS: An initial portable abdomen performed in the OR demonstrates transverse pelvic skin hadley and no fo reign body or retained instrument. A second image taken approximately 1 minute later shows no skin st aples and no foreign body or retained instrument. Normal bowel gas pattern. IMPRESSION: 1. Negative abdomen with no retained instrument or foreign body.. Signer Name: Chidi Reed MD Signed: 12/03/2019 2:01 PM Workstation Name: [id number]
[2019-12-03] MEDS: KETOROLAC 30 MG/1 ML INJ IV SCH ×2 (17:25→23:49)
--- NOTE | 2019-12-03 17:42 | Post Anesthesia Evaluation ---
- Post Anesthesia Evaluation Patient Participated: Yes Airway Patent: Yes Stable Respiratory Function: Yes Nausea/Vomiting: No Temp > 96.8F: Yes Pain Manageable: Yes Adequeate Hydration: Yes Anesthesia Complications: No
[2019-12-03] MEDS: D5W/LACTATED RINGERS 1,000 ML IV SCH (22:08)
[2019-12-03] MEDS: ACETAMINOPHEN 325 MG TAB PO SCH (23:49)
[2019-12-04 01:03] LABS: Hematocrit 32.2 % (30.3-42.9); Hemoglobin 10.3 gm/dl (10.1-14.3)
[2019-12-04] MEDS: ACETAMINOPHEN 325 MG TAB PO SCH (05:44)
[2019-12-04] MEDS: KETOROLAC 30 MG/1 ML INJ IV SCH (05:44)
[2019-12-04] MEDS: D5W/LACTATED RINGERS 1,000 ML IV SCH (05:49)
--- NOTE | 2019-12-04 10:53 | Progress Note ---
Assessment and Plan - Patient Problems (1) S/P primary low transverse Current Visit: Yes Status: Acute Plan to address problem: POD 1 - stable Continue routine postop orders Ambulation encouraged, as tolerated Abdominal binder ordered Anticipate discharge in 24 to 48 hours (2) Single live Current Visit: Yes Status: Acute Subjective - Subjective Date of service: 12/04/19 Principal diagnosis: POD 31; s/p Primary LTCS Interval history: see H&P, OB Progress Notes and OB Delivery Procedure Note Patient reports: appetite normal, voiding normally, pain well controlled, flatus, ambulating normally, no bowel movement : doing well, nursing well, bottle feeding Objective - Vital Signs Latest vital signs: Vital Signs Temp Pulse Resp BP BP Pulse Ox 12/04/19 07:30 98 F 77 18 125/82 12/04/19 05:44 18 12/03/19 23:49 20 12/03/19 20:57 98.1 F 85 20 122/76 98 12/03/19 14:43 97.5 F L 56 L 16 140/85 100 12/03/19 14:05 63 16 137/88 99 12/03/19 13:50 69 17 122/86 98 12/03/19 13:35 96.6 F L 71 16 139/90 98 12/03/19 13:20 66 15 136/83 98 12/03/19 13:05 74 15 138/82 98 12/03/19 13:00 97 H 15 138/82 97 12/03/19 12:50 77 17 126/82 97 12/03/19 12:45 91 H 17 120/76 98 12/03/19 12:35 82 19 120/76 98 12/03/19 12:30 83 19 112/69 98 12/03/19 12:25 82 17 112/72 97 12/03/19 12:20 82 17 113/76 113/76 97 12/03/19 12:15 84 21 113/68 113/68 98 12/03/19 12:11 93 H 21 113/68 98 12/03/19 12:10 98.0 F 90 18 110/72 96 12/03/19 11:10 75 12/03/19 11:00 74 118/67 Intake and Output 12/03/19 12/04/19 12/04/19 23:59 07:59 15:59 Intake Total 960.417 300 Output Total 800 Balance 160.417 300 Intake: IV 960.417 D5lr 1,000 ml @ 125 mls/ 960.417 hr IV DIRECT CAT Rx#: [id number] Intake, Free Water 300 Output: Urine 800 Indwelling Catheter 800 Other: Total, Output Amount 800 - Exam Cardiovascular: Present: Regular rate Lungs: Present: Clear to auscultation Abdomen: Present: normal appearance, soft Vulva: both: normal Uterus: Present: normal, firm, fundal height at umbilicus Extremities: Present: normal Incision: Present: normal, dry, intact, dressed Comments: small lochia
[2019-12-05] MEDS ORDERED: SIMETHICONE 80 MG CHEW TAB PO PRN (10:00)
--- NOTE | 2019-12-05 10:56 | Discharge Summary ---
Providers - Providers Date of Admission: 12/02/19 14:17 Date of discharge: 12/05/19 (1200) Attending physician: HUEY COBIAN Primary care physician: HUEY COBIAN Hospitalization Reason for admission: induction of labor Delivery: Procedure: primary low transverse (secondary to non-reasuring heart tones) Episiotomy: none Laceration: none Incision: dry, intact (hadley intact, no signs of infection noted) Other procedures: none complications: none Discharge diagnosis: IUP at term delivered, other (Anemia) baby: male Hospital course: See admission H & P; OB operative note and PP progress notes Condition at discharge: Good Disposition: DC-01 TO HOME OR SELFCARE - Discharge Diagnoses (1) Beta thalassemia minor Status: Acute (2) S/P primary low transverse Status: Acute (3) Anemia Status: Acute Qualifiers: Anemia type: other cause Other causes of anemia: acute posthemorrhagic Qualified Code(s): D62 - Acute posthemorrhagic anemia Plan - Discharge Medications Prescriptions: Ferrous Sulfate [Feosol 325 MG tab] 325 mg PO QDAY 30 Days #30 tablet Ibuprofen [Motrin] 600 mg PO Q8H PRN #30 tablet PRN Reason: Pain oxyCODONE /ACETAMINOPHEN [Percocet 5/325] 1 tab PO Q6HR PRN #20 tablet PRN Reason: Pain - Provider Discharge Summary Activity: routine, no sex for 6 weeks, no heavy lifting 4 weeks, no strenuous exercise Diet: other (Iron rich diet) Instructions: routine Additional instructions: [] Smoking cessation referral if applicable(refer to patient education folder for contact #) [] Refer to [facility] Booklet Call your doctor immediately for: * Fever > 100.5 * Heavy vaginal bleeding ( >1 pad per hour) * Severe persistent headache * Shortness of breath * Reddened, hot, painful area to leg or breast * Drainage or odor from incision. * Keep incision clean and dry at all times and follow doctor's instructions regarding bathing/showering - Follow up plan Follow up: HUEY COBIAN MD [Primary Care Provider] - 7 Days Forms: Work/School Release Form
[2019-12-05 15:04] VITALS: BP 128/83
[2019-12-06] MEDS ORDERED: FERROUS SULFATE 325 MG TAB PO SCH (10:00)
== END 2019-12-05 15:15 | disposition home or self-care (01) | DRG 787 ==
LOC: LD 14:17 → OB 12-03 15:01
PROVIDERS: ADMIT Obstetrics & Gynecology; ATTEND Obstetrics & Gynecology
PROC: 10D00Z1 Extraction of Products of Conception, Low, Open Approach (ICD-10-PCS; principal; 2019-12-03)
PROC: 4A033R1 Measurement of Arterial Saturation, Peripheral, Percutaneous Approach (ICD-10-PCS; 2019-12-03)
DX: O76 Abnormality in fetal heart rate and rhythm complicating labor and delivery (principal); D62 Acute posthemorrhagic anemia; D56.3 Thalassemia minor; O99.02 Anemia complicating childbirth; Z3A.39 39 weeks gestation of pregnancy; Z37.0 Single live birth; Z82.49 Family history of ischemic heart disease and other diseases of the circulatory system
CPT/HCPCS: 36415; 74018; 76815; 76819; 85014; 85018; 85027; 86850; 86900; 86901; 88307; G0378; J0330; J0690; J1100; J1885; J2250; J2270; J2405; J2590; J2704; J2765; J3490; J7120; J7121